=== PATIENT | male | born 1995 ===

== ENCOUNTER 2023-11-19 21:36 | Observation (INO) ==
[2023-11-19] MEDS ORDERED: Morphine 4 MG/ML VIAL (1 ml) IV ONE (23:15)
[2023-11-19] MEDS ORDERED: Ondansetron 4 mg VIAL 2 MG/ML 2 ml VIAL IV ONE (23:15)
[2023-11-19] MEDS ORDERED: Lactated Ringers 1000 ml BAG 1,000 ML IV ONE (23:15)
[2023-11-20 00:42] LABS: ABS Basophils 0.1 10^3/uL (0.0-0.1); ABS Lymphocytes 0.7 10^3/uL (1.0-4.8); ABS Monocytes 1.3 10^3/uL (0.0-1.1); ABS Neutrophils 13.2 10^3/uL (1.5-7.6); Hematocrit 40.4 % (38-53); Hemoglobin 13.8 g/dL (13.2-16.3); Lymphocyte % 4.8 %; Mean Corpuscular Hemoglobin 29.1 pg (27-33); Mean Corpuscular Hgb Conc 34.3 g/dL (31-36); Mean Corpuscular Volume 84.9 fL (80-97); Mean Platelet Volume 8.3 fL (7.5-11.2); Platelet Count 250 10^3/uL (150-450); Red Blood Count 4.76 10^6/uL (4.06-5.63); White Blood Count 15.2 10^3/uL (3.6-10.2)
[2023-11-20 01:08] LABS: ALT 22 U/L (7-52); AST 17 U/L (13-39); Albumin 4.6 g/dL (3.2-5.2); Alkaline Phosphatase 70 U/L (35-149); Anion Gap 7 mmol/L (2-16); Blood Urea Nitrogen 18 mg/dL (6-24); C Reactive Protein 5.69 mg/L (<8.01); CO2 Carbon Dioxide 26 mmol/L (22-32); Calcium 9.2 mg/dL (8.6-10.3); Chloride 100 mmol/L (101-111); Creatinine, Serum 0.81 mg/dL (0.67-1.17); Globulin 2.3 g/dL (2-4); Glucose 131 mg/dL (70-100); Lipase < 10 U/L (11.0-82.0); Potassium 3.6 mmol/L (3.5-5.0); Sodium 133 mmol/L (135-145); Total Protein 6.9 g/dL (6.4-8.9); eGFR CKD-EPI 121.6 (>60)
[2023-11-20] MEDS ORDERED: Iohexol 300 (CONTRAST) 10 ML SDV IV ONE (01:15)
[2023-11-20] MEDS ORDERED: Piperacillin/Tazobac 3.375 BAG 3.375 GM/100 ML BAG IV ONE (02:59)
[2023-11-20] MEDS ORDERED: Lactated Ringers 1000 ml BAG 1,000 ML IV ONE (02:59)
[2023-11-20] MEDS ORDERED: Morphine 4 MG/ML VIAL (1 ml) IV ONE (02:59)
[2023-11-20] MEDS ORDERED: Ondansetron 4 mg VIAL 2 MG/ML 2 ml VIAL IV PRN ×2 (03:17→11:21)
[2023-11-20] MEDS ORDERED: NS 0.9% 1000 ml BAG 1,000 ML IV SCH (03:30)
[2023-11-20] MEDS ORDERED: HYDROmorphone 1 MG/1 ML SYRINGE IV PRN (03:31)
[2023-11-20 03:40] LABS: Urine Appearance Clear; Urine Bilirubin Negative (Negative); Urine Blood Negative (Negative); Urine Color Straw; Urine Glucose Negative (Negative); Urine Ketones Negative (Negative); Urine Nitrite Negative (Negative); Urine Protein Negative (Negative); Urine Specific Gravity 1.032 (1.002-1.030); Urine Urobilinogen Negative (Negative)
[2023-11-20] MEDS ORDERED: HYDROmorphone 1 MG/1 ML SYRINGE ONE (04:03)
[2023-11-20] MEDS ORDERED: Bupivacaine 0.5% SDV PF 30ML VIAL ONE (08:52)
[2023-11-20] MEDS ORDERED: Lidocaine 1% w EPI 1:100,000 MDV 20 ML VIAL ONE (08:52)
[2023-11-20] MEDS ORDERED: Lidocaine 2% PF 5 ML VIAL ONE (09:19)
[2023-11-20] MEDS ORDERED: Dexamethasone IV 4 MG/ML VIAL 1 ml VIAL ONE ×2 (09:19→10:02)
[2023-11-20] MEDS ORDERED: Propofol 10 MG/ML 20 ML BTL ONE (09:19)
[2023-11-20] MEDS ORDERED: Ondansetron 4 mg VIAL 2 MG/ML 2 ml VIAL ONE ×3 (09:19→11:28)
[2023-11-20] MEDS ORDERED: Midazolam 2 mg/2 ml VIAL 1 mg/ml 2 ml VIAL (2 mg) ONE (09:20)
[2023-11-20] MEDS ORDERED: Rocuronium 50 mg VIAL 10 mg/ml 5 ml VIAL (50 mg) ONE (09:20)
[2023-11-20] MEDS ORDERED: fentaNYL 100 mcg/2 ml 50 MCG/ML VIAL ONE (09:20)
[2023-11-20] MEDS ORDERED: Acetaminophen IV 1 GM/100ML 1,000 MG/100 ML BAG IV ONE (10:13)
[2023-11-20] MEDS ORDERED: Succinylcholine 200 mg VIAL 20 mg/ml 10 ml VIAL (200 mg) ONE (10:30)
[2023-11-20] MEDS ORDERED: HYDROcodone/ACETAMIN 5/325 mg TAB PO PRN (11:21)
[2023-11-20] MEDS ORDERED: Naloxone 0.4 mg VIAL 0.4 mg/ml 1 ml VIAL IV PRN (11:21)
[2023-11-20] MEDS ORDERED: Metoclopramide 5 MG/ML VIAL (10 mg) IV PRN (11:21)
[2023-11-20] MEDS ORDERED: fentaNYL 100 mcg/2 ml 50 MCG/ML VIAL IV PRN (11:21)
[2023-11-20] MEDS ORDERED: Metoclopramide 5 MG/ML VIAL (10 mg) ONE (11:28)
[2023-11-20 11:55] VITALS: BP 95/54
[2023-11-20] MEDS ORDERED: Piperacillin/Tazobac 3.375 BAG 3.375 GM/100 ML BAG IV SCH (12:30)
== END 2023-11-20 12:53 | disposition home or self-care (01) ==
LOC: EDHOLD 21:36 → ED 21:36 → AA 11-20 08:59
PROVIDERS: ADMIT Surgery; ATTEND Surgery